=== PATIENT | male | born 1980 | race African-American/Black ===

== ENCOUNTER 2020-12-24 09:55 | Inpatient (IN) ==
[2020-12-24] MEDS ORDERED: hydrALAZINE 20 MG/1 ML VIAL IV STA (10:16)
[2020-12-24 10:33] LABS: Basophils # 0.1 10*3/uL (0.0-0.2); Basophils % 0.5 % (0.0-0.8); Eosinophils # 0.1 10*3/uL (0.0-0.87); Eosinophils % 1.1 % (0.00-10.9); Hematocrit 35.4 VOL% (42.0-52.0); Hemoglobin 12.2 GM/DL (14.0-18.0); Immature Granulocytes % 0.4 %; Immature Granulocytes Absolute 0.04 #; Lymphocytes # 1.8 10*3/uL (1.4-4.0); Mean Corpuscular HGB Conc 34.5 GM/DL (32-36); Mean Corpuscular Volume 83.7 FL (87-102); Mean Platelet Volume 10.2 FL (9.6-12.0); Monocytes % 10.9 % (1.7-12.7); Neutrophils % 68.1 % (38.7-73.9); Platelet Count 163 T/CUMM (130-400); Red Blood Count 4.23 MC/CUMM (3.8-5.5); Red Cell Distribution Width 13.3 % (9.3-17.3); White Blood Count 9.6 T/CUMM (4-12)
[2020-12-24 10:50] LABS: Calcium 9.4 MG/DL (8.5-10.1); Osmolality,Calculated 278.8 MOS/KG (273-304)
[2020-12-24 10:53] LABS: Potassium 2.5 MMOL/L (3.5-5.1)
[2020-12-24] MEDS ORDERED: METOPROLOL TARTRATE 5 MG/5 ML VIAL IV STA (10:53)
[2020-12-24] MEDS ORDERED: niCARdipine 25 MG/10 ML VIAL IV ONE (11:28)
[2020-12-24] MEDS: niCARdipine INJ 25 MG in SODIUM CHLORIDE 0.9% 240 ML IV PRN ×2 (11:38→15:15)
[2020-12-24] MEDS ORDERED: ALBUTEROL 2.5 MG/3 ML NEB RESP TX PRN (11:46)
[2020-12-24] MEDS ORDERED: ONDANSETRON 4 MG/2 ML VIAL IV PRN (11:46)
[2020-12-24] MEDS: METOPROLOL TARTRATE 50 MG TABLET PO SCH ×2 (13:07→20:47)
[2020-12-24] MEDS: POTASSIUM CHLORIDE 20 MEQ TABLET PO SCH ×3 (13:07→19:43)
[2020-12-24] MEDS: PANTOPRAZOLE 40 MG TABLET PO SCH (13:08)
[2020-12-24] MEDS: ENOXAPARIN 30 MG/0.3 ML SYRINGE SUBCUT SCH (13:08)
[2020-12-24 21:35] LABS: Bilirubin,Urine Negative (Negative); Blood, Urine Large mg/dL (Negative); Glucose,Urine (UA) 50 mg/dL (Negative); Ketones,Urine Negative (Negative); Mucus,Urine Occasional /LPF (Occasional); Nitrite,Urine Negative (Negative); Protein,Urine >=500 MG/DL; RBC,Urine 191 /HPF (0-4); Squamous Epithelial Cell,Urine Occasional /HPF (0-10); Urine Appearance CLEAR (Clear); Urine Color Yellow (Yellow); Urine Specific Gravity 1.012 (1.001-1.035); Urine Urobilinogen < 2.0 EU/DL (0.2-1.0); WBC,Urine 4 /HPF (0-6)
[2020-12-24 22:06] LABS: Microalbum/Creat Ratio Random 3873.9 RATIO (0-30)
[2020-12-25] MEDS ORDERED: hydrALAZINE 20 MG/1 ML VIAL ONE (03:06)
[2020-12-25] MEDS: hydrALAZINE 20 MG/1 ML VIAL IV PRN (03:12)
[2020-12-25 05:08] LABS: Albumin 2.6 G/DL (3.4-5.0); Bilirubin,Total 1.1 MG/DL (0.2-1.0); Calcium 8.9 MG/DL (8.5-10.1); Osmolality,Calculated 280.9 MOS/KG (273-304); Potassium 2.6 MMOL/L (3.5-5.1)
[2020-12-25 05:13] LABS: Troponin I 1.19 NG/ML (0.00-0.045)
[2020-12-25] MEDS ORDERED: POTASSIUM CHLORIDE 20 MEQ TABLET PO ONE (05:22)
[2020-12-25] MEDS: METOPROLOL TARTRATE 50 MG TABLET PO SCH ×2 (08:44→20:37)
[2020-12-25] MEDS: PANTOPRAZOLE 40 MG TABLET PO SCH (08:45)
[2020-12-25] MEDS: POTASSIUM CHLORIDE 20 MEQ TABLET PO SCH ×3 (10:09→17:20)
[2020-12-25] MEDS: amLODIPine 10 MG TABLET PO SCH (11:38)
[2020-12-25] MEDS: ENOXAPARIN 30 MG/0.3 ML SYRINGE SUBCUT SCH (11:38)
[2020-12-25 13:17] LABS: Troponin I 1.17 NG/ML (0.00-0.045)
[2020-12-26 06:04] LABS: Basophils % 0.3 % (0.0-0.8); Eosinophils # 0.1 10*3/uL (0.0-0.87); Eosinophils % 1.8 % (0.00-10.9); Hematocrit 27.8 VOL% (42.0-52.0); Hemoglobin 9.5 GM/DL (14.0-18.0); Immature Granulocytes % 0.3 %; Immature Granulocytes Absolute 0.02 #; Lymphocytes # 1.7 10*3/uL (1.4-4.0); Mean Corpuscular HGB Conc 34.2 GM/DL (32-36); Mean Corpuscular Volume 86.3 FL (87-102); Mean Platelet Volume 11.7 FL (9.6-12.0); Monocytes % 12.9 % (1.7-12.7); Neutrophils % 57.7 % (38.7-73.9); Platelet Count 185 T/CUMM (130-400); Red Blood Count 3.22 MC/CUMM (3.8-5.5); Red Cell Distribution Width 13.3 % (9.3-17.3); White Blood Count 6.2 T/CUMM (4-12)
[2020-12-26 06:27] LABS: Calcium 8.7 MG/DL (8.5-10.1); Osmolality,Calculated 290.7 MOS/KG (273-304); Potassium 2.9 MMOL/L (3.5-5.1)
[2020-12-26 07:18] LABS: Hepatitis B Core IgM Quant < 0.05 Index; Hepatitis B Surface Ag Quant < 0.10 Index; Hepatitis B Surface Ag Result Non-Reactive (NonReactive); Hepatitis C Virus Ab Quant 0.08 Index; Hepatitis C Virus Ab Result Non-Reactive (NonReactive)
[2020-12-26] MEDS: hydrALAZINE 20 MG/1 ML VIAL IV PRN (08:58)
[2020-12-26] MEDS: amLODIPine 10 MG TABLET PO SCH (08:59)
[2020-12-26] MEDS: METOPROLOL TARTRATE 50 MG TABLET PO SCH ×2 (08:59→21:35)
[2020-12-26] MEDS: POTASSIUM CHLORIDE 20 MEQ TABLET PO PRN ×4 (08:59→17:41)
[2020-12-26] MEDS: PANTOPRAZOLE 40 MG TABLET PO SCH (08:59)
[2020-12-26] MEDS: ENOXAPARIN 30 MG/0.3 ML SYRINGE SUBCUT SCH (11:47)
[2020-12-26] MEDS: SPIRONOLACTONE 25 MG TABLET PO SCH (21:35)
[2020-12-27] MEDS: POTASSIUM CHLORIDE 20 MEQ TABLET PO PRN ×4 (00:20→06:39)
[2020-12-27 07:52] LABS: Basophils % 0.5 % (0.0-0.8); Eosinophils # 0.2 10*3/uL (0.0-0.87); Eosinophils % 2.5 % (0.00-10.9); Hematocrit 27.2 VOL% (42.0-52.0); Hemoglobin 9.1 GM/DL (14.0-18.0); Immature Granulocytes % 0.3 %; Immature Granulocytes Absolute 0.02 #; Lymphocytes # 1.7 10*3/uL (1.4-4.0); Lymphocytes % 28.3 % (21.2-54.2); Mean Corpuscular HGB Conc 33.5 GM/DL (32-36); Mean Corpuscular Volume 86.9 FL (87-102); Mean Platelet Volume 11.8 FL (9.6-12.0); Monocytes % 11.4 % (1.7-12.7); Platelet Count 211 T/CUMM (130-400); Red Blood Count 3.13 MC/CUMM (3.8-5.5); Red Cell Distribution Width 13.8 % (9.3-17.3); White Blood Count 5.9 T/CUMM (4-12)
[2020-12-27 08:07] LABS: Calcium 8.6 MG/DL (8.5-10.1); Osmolality,Calculated 287.9 MOS/KG (273-304); Potassium 3.4 MMOL/L (3.5-5.1)
[2020-12-27] MEDS: SPIRONOLACTONE 25 MG TABLET PO SCH ×2 (09:32→20:24)
[2020-12-27] MEDS: METOPROLOL TARTRATE 50 MG TABLET PO SCH ×2 (09:33→20:24)
[2020-12-27] MEDS: PANTOPRAZOLE 40 MG TABLET PO SCH (09:33)
[2020-12-27] MEDS: amLODIPine 10 MG TABLET PO SCH (09:33)
[2020-12-27] MEDS: ENOXAPARIN 30 MG/0.3 ML SYRINGE SUBCUT SCH (11:11)
[2020-12-28 06:34] LABS: Calcium 8.5 MG/DL (8.5-10.1); Osmolality,Calculated 300.2 MOS/KG (273-304); Potassium 3.3 MMOL/L (3.5-5.1)
[2020-12-28] MEDS: SPIRONOLACTONE 25 MG TABLET PO SCH ×2 (11:15→20:43)
[2020-12-28] MEDS: amLODIPine 10 MG TABLET PO SCH (11:15)
[2020-12-28] MEDS: PANTOPRAZOLE 40 MG TABLET PO SCH (11:15)
[2020-12-28] MEDS: METOPROLOL TARTRATE 50 MG TABLET PO SCH ×2 (11:15→20:43)
[2020-12-28] MEDS: ENOXAPARIN 30 MG/0.3 ML SYRINGE SUBCUT SCH (15:09)
[2020-12-29] MEDS: hydrALAZINE 20 MG/1 ML VIAL IV PRN (04:30)
[2020-12-29 05:49] LABS: Calcium 8.4 MG/DL (8.5-10.1); Osmolality,Calculated 301.1 MOS/KG (273-304); Potassium 3.4 MMOL/L (3.5-5.1)
[2020-12-29] MEDS: PANTOPRAZOLE 40 MG TABLET PO SCH (09:38)
[2020-12-29] MEDS: amLODIPine 10 MG TABLET PO SCH (09:38)
[2020-12-29] MEDS: METOPROLOL TARTRATE 50 MG TABLET PO SCH ×2 (09:39→20:43)
[2020-12-29] MEDS: SPIRONOLACTONE 25 MG TABLET PO SCH ×2 (09:39→20:43)
[2020-12-29] MEDS: ENOXAPARIN 30 MG/0.3 ML SYRINGE SUBCUT SCH (09:41)
[2020-12-29 15:14] LABS: Glomerular Basement Membrane A < 0.2 U; Myeloperoxidase Antibody < 0.2 U
[2020-12-30] MEDS ORDERED: HEPARIN 5,000 UNIT/1 ML VIAL ONE (06:28)
[2020-12-30] MEDS ORDERED: BUPIVACAINE MPF 0.25% 30 ML VIAL ONE (06:28)
[2020-12-30] MEDS ORDERED: LIDOCAINE 1%/EPI INJ 20 ML VIAL ONE (06:28)
[2020-12-30] MEDS ORDERED: SODIUM CHLORIDE 0.9% 100 ML IV ONE (06:44)
[2020-12-30] MEDS ORDERED: propofoL 200 MG/20 ML VIAL IV ONE (06:44)
[2020-12-30] MEDS ORDERED: fentaNYL 100 MCG/2 ML VIAL ONE (06:44)
[2020-12-30] MEDS ORDERED: ETOMIDATE 40 MG/20 ML VIAL IV ONE (06:44)
[2020-12-30] MEDS ORDERED: MIDAZOLAM 2 MG/2 ML VIAL ONE (06:44)
[2020-12-30] MEDS ORDERED: ceFAZolin 1,000 MG VIAL ONE (07:24)
[2020-12-30] MEDS ORDERED: SODIUM CHLORIDE 0.9% 250 ML IV SCH (07:30)
[2020-12-30] MEDS: PANTOPRAZOLE 40 MG TABLET PO SCH (09:00)
[2020-12-30] MEDS ORDERED: HEPARIN 10,000 UNIT/10 ML VIAL IV PRN (09:32)
[2020-12-30] MEDS: SPIRONOLACTONE 25 MG TABLET PO SCH ×2 (10:24→20:38)
[2020-12-30] MEDS: amLODIPine 10 MG TABLET PO SCH (10:24)
[2020-12-30] MEDS: METOPROLOL TARTRATE 50 MG TABLET PO SCH ×2 (10:24→20:38)
[2020-12-30 14:47] LABS: Antinuclear Ab, S 0.4 U
[2020-12-31 05:43] LABS: Basophils % 0.6 % (0.0-0.8); Eosinophils # 0.2 10*3/uL (0.0-0.87); Eosinophils % 3.1 % (0.00-10.9); Hematocrit 27.4 VOL% (42.0-52.0); Immature Granulocytes % 0.4 %; Immature Granulocytes Absolute 0.03 #; Lymphocytes # 2.1 10*3/uL (1.4-4.0); Lymphocytes % 29.3 % (21.2-54.2); Mean Corpuscular HGB Conc 32.8 GM/DL (32-36); Mean Corpuscular Volume 89.3 FL (87-102); Mean Platelet Volume 11.2 FL (9.6-12.0); Monocytes % 12.6 % (1.7-12.7); Platelet Count 283 T/CUMM (130-400); Red Blood Count 3.07 MC/CUMM (3.8-5.5); Red Cell Distribution Width 13.6 % (9.3-17.3); White Blood Count 7.1 T/CUMM (4-12)
[2020-12-31 06:04] LABS: Osmolality,Calculated 291.4 MOS/KG (273-304); Potassium 3.1 MMOL/L (3.5-5.1)
[2020-12-31 06:18] LABS: Hypochromasia 2+; Microcytosis 1+
[2020-12-31 06:19] LABS: Platelet Estimate Normal
[2020-12-31] MEDS: amLODIPine 10 MG TABLET PO SCH (08:17)
[2020-12-31] MEDS: SPIRONOLACTONE 25 MG TABLET PO SCH ×2 (08:17→21:12)
[2020-12-31] MEDS: METOPROLOL TARTRATE 50 MG TABLET PO SCH ×2 (08:17→21:12)
[2020-12-31] MEDS: PANTOPRAZOLE 40 MG TABLET PO SCH (08:17)
[2021-01-01] MEDS: SPIRONOLACTONE 25 MG TABLET PO SCH (13:00)
[2021-01-01] MEDS: amLODIPine 10 MG TABLET PO SCH (13:00)
[2021-01-01] MEDS: PANTOPRAZOLE 40 MG TABLET PO SCH (13:00)
[2021-01-01] MEDS: METOPROLOL TARTRATE 50 MG TABLET PO SCH (13:00)
[2021-01-01 13:09] VITALS: BP 163/100
== END 2021-01-01 13:23 | disposition home or self-care (01) | DRG 674 ==
LOC: N.ED 09:55 → N.EDINP 11:45 → SUATTDRO 11:45 → N.CC 12:53 → N.5E 12-25 12:34
PROVIDERS: ADMIT Internal Medicine; ATTEND Internal Medicine